=== PATIENT | female | born 1965 | race Caucasian/White ===

== ENCOUNTER 2021-11-29 21:53 | Outpatient (CLI) | payer OTHER, SELFPAY | END 2021-11-29 23:59 | disposition short-term general hospital (02) | PROVIDERS: Visit Provider Nurse Practitioner | DX: N30.01 Acute cystitis with hematuria (principal); R30.0 Dysuria | CPT/HCPCS: 87086; 87088 ==

== ENCOUNTER → 2022-03-03 | Outpatient (CLI) | payer OTHER, SELFPAY ==
--- NOTE | 2022-03-03 14:45 | RAD_ITS ---
STUDY: X-RAY - CERVICAL SPINE REASON FOR EXAM: Female, 57 years old. NECK AND R SHOULDER PAIN TECHNIQUE: XR Spine Cervical 4 or 5 Views COMPARISON: None FINDINGS: Normal anterior atlantoaxial articulation. The odontoid process is obscured by the overlying hard palate on the open mouth view. Therefore, it is not fully evaluated by plain film. There is reversal of the normal cervical lordosis. There is multi-level endplate spondylosis. There is multi-level degenerative disc disease with multilevel disc space narrowing. There is multi-level osseous foraminal stenosis. The soft tissue structures are unremarkable. RAD/Cerv Spine 4 or 5 Views IMPRESSION: There are degenerative changes as noted above. There is mild straightening of the normal cervical lordosis. This can suggest neck strain. The odontoid process is obscured by the overlying hard palate on the open mouth view. Therefore, it is not fully evaluated by plain film. Electronically Signed: Angel Byrnes MD at 14:57 EDT ,
--- NOTE | 2022-03-03 14:45 | RAD_ITS ---
STUDY: X-RAY - RIGHT SHOULDER REASON FOR EXAM: Female, 57 years old. Inability to lift arm. TECHNIQUE: 4 view(s) of the shoulder. COMPARISON: None. FINDINGS: Normal glenohumeral articulation. Mild arthrosis of the AC joint. Small subacromial spur. Sclerosis and cystic change of the greater tuberosity. The soft tissue structures are unremarkable. Normal visualized pulmonary apex. 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 Small subacromial spur. No acute abnormality or erosive changes. Electronically Signed: Scott Gutierrez MD at 9:26 EDT ,
== END | disposition home or self-care (01) ==
LOC: RAD 14:42
PROVIDERS: Referring Provider Nurse Practitioner; Visit Provider Nurse Practitioner
DX: M54.2 Cervicalgia (principal); M50.30 Other cervical disc degeneration, unspecified cervical region
CPT/HCPCS: 72050; 73030